=== PATIENT | male | born 2000 | race Caucasian/White ===

== ENCOUNTER 2021-04-09 11:48 | Emergency (ER) | payer OTHER ==
[~2021-04-09] VITALS: Ht 188 cm; Wt 95.5 kg
[2021-04-09 12:01] VITALS: TEMP 98.8
[2021-04-09] MEDS ORDERED: CEPHALEXIN500 M1 PO (12:49)
[2021-04-09] MEDS ORDERED: NORCO 325 MG-51 TAB PO (12:49)
[2021-04-09 13:12] VITALS: BP 162/98; PULSE 97
== END 2021-04-09 13:18 | disposition home or self-care (01) ==
LOC: COL.ER 11:48
DX: S91.331A Puncture wound without foreign body, right foot, initial encounter (principal); W34.00XA Accidental discharge from unspecified firearms or gun, initial encounter; Y93.89 Activity, other specified
CPT/HCPCS: J0690